=== PATIENT | male | born 1955 | race Two or more races ===

== ENCOUNTER 2020-04-19 15:39 | Inpatient (IN) | payer OTHER, MEDICAID ==
[~2020-04-19] VITALS: Ht 172.7 cm; Wt 90.5 kg
[2020-04-19] MEDS ORDERED: LORazepam Inj 2mg/ml 1ml IV ONE (15:45)
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
--- NOTE | 2020-04-19 16:02 | NUR ---
ED Nurse Note: x-ray at bedside.
--- NOTE | 2020-04-19 16:07 | NUR ---
ED Nurse Note: [employer] at bedside.
[2020-04-19 16:14] VITALS: BP 90/54
[2020-04-19 16:18] LABS: BASOPHILS % (AUTO) 0.8 % (0.0-2.0); EOSINOPHILS % (AUTO) 1.1 % (0.0-3.0); HEMATOCRIT 40.1 % (42.0-52.0); HEMOGLOBIN 13.7 G/DL (14.2-18.0); LYMPHOCYTES % (AUTO) 30.5 % (20.0-45.0); MEAN CORPUSCULAR VOLUME 97 FL (80-99); MONOCYTES % (AUTO) 15.6 % (1.0-10.0); NEUTROPHILS % (AUTO) 52.1 % (45.0-75.0); PLATELET COUNT 123 K/UL (150-450); RED BLOOD COUNT 4.15 M/UL (4.70-6.10); RED CELL DISTRIBUTION WIDTH 14.1 % (11.6-14.8); WHITE BLOOD COUNT 5.7 K/UL (4.8-10.8)
--- NOTE | 2020-04-19 16:23 | NUR ---
ED Nurse Note: Latest BP: 84/46, pt denies having any dizziness.
[2020-04-19 16:29] LABS: ALANINE AMINOTRANSFERASE 86 U/L (12-78); ALBUMIN 3.2 G/DL (3.4-5.0); ALBUMIN/GLOBULIN RATIO 0.8 (1.0-2.7); ALKALINE PHOSPHATASE 88 U/L (46-116); ANION GAP 12 mmol/L (5-15); ASPARTATE AMINO TRANSFERASE 64 U/L (15-37); BILIRUBIN,TOTAL 0.8 MG/DL (0.2-1.0); BLOOD UREA NITROGEN 21 mg/dL (7-18); CALCIUM 8.8 MG/DL (8.5-10.1); CARBON DIOXIDE 26 MMOL/L (21-32); CHLORIDE 96 MMOL/L (98-107); CREATININE 1.1 MG/DL (0.55-1.30); SODIUM 134 MMOL/L (136-145)
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
[2020-04-19 16:44] LABS: POTASSIUM 2.6 MMOL/L (3.5-5.1)
[2020-04-19 17:09] LABS: APPEARANCE,URINE CLEAR; BILIRUBIN, URINE NEGATIVE (NEGATIVE); GLUCOSE, URINE (UA) NEGATIVE (NEGATIVE); KETONES,URINE NEGATIVE (NEGATIVE); LEUKOCYTE ESTERASE ,URINE NEGATIVE (NEGATIVE); NITRITE,URINE NEGATIVE (NEGATIVE); PH,URINE 7 (4.5-8.0); PROTEIN,URINE NEGATIVE (NEGATIVE); UROBILINOGEN,URINE 1 MG/DL (0.0-1.0)
[2020-04-19 17:15] LABS: COLOR,URINE YELLOW
--- NOTE | 2020-04-19 17:29 | Diagnostic Imaging Report ---
Indication: Shortness of breath Technique: One view of the chest Comparison: none Findings: Lungs and pleural spaces are clear. Heart size is normal. Impression: No acute process
--- NOTE | 2020-04-19 17:30 | Diagnostic Imaging Report ---
Indication: Low back pain Technique: 3 views of the lumbar spine Comparison: None Findings: There is very slight anterior offset of L5 on S1. No definite pars defect is demonstrated. There is degenerative disc narrowing at L5-S1. The remaining disc spaces are preserved. Vertebral body heights are preserved. Pedicles are intact. Sacral arches are preserved. Sacral iliac joint spaces are preserved Impression: Degenerative changes. No acute process
[2020-04-19 17:35] VITALS: BP 110/71
[2020-04-19] MEDS ORDERED: LISINOPRIL5 MG ORAL (18:25)
[2020-04-19] MEDS ORDERED: ATORVASTATIN CA10 MG ORAL (18:25)
--- NOTE | 2020-04-19 18:25 | NUR ---
ED Nurse pt was transferred to telemetry unit under the care of dr zapata. report was given to rohini guillermo in tele unit. pt was transferred on stable condition; all belongings were sent with pt
--- NOTE | 2020-04-19 18:47 | NUR ---
NURSE NOTES: PATIENT WAS PRE-ADMITTED FROM ER TO TELE AT 18:33. PATIENT IS AAO X4, DENIES ANY PAIN AT THIS TIME. 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 V/S TAKEN, BP 129/83, T 97.7, R 20, HR 61, O2 SAT 96% ON RA. PATIENT IS IN STABLE CONDITION ALL BELONGINGS ACCOUNTED FOR AND SIGNED. WILL ENDORSE ADMISSION TO ARCHITECTURAL REPRESENTATIVE. WILL CONTINUE TO MONITOR PATIENT..
--- NOTE | 2020-04-19 19:30 | NUR ---
NURSE NOTES: Received pt and report from DILMA Granger. Observed pt resting in bed with both eyes open and on his cell phone. outside industrial sales representative is in placed; pt is NSR. IV site intact, intact, asymptomatic, and patent. Bed is in the lowest position and locked. Call light and bedside table is within reach. No signs/symptoms of acute distress noted. Will continue plan of care.
--- NOTE | 2020-04-19 19:37 | NUR ---
NURSE HAND-OFF REPORT: Important Events on Shift:NEW ADMISSION Patient Status: Diet: Pending Orders: Pending Results/Labs: Pending MD notification: Latest Vital Signs: Temperature 96.3 , Pulse 70 , B/P 110 /71 , Respiratory Rate 14 , O2 SAT 98 , Room Air, O2 Flow Rate . Vital Sign Comment: STABLE EKG Rhythm: Rhythm change?: MD Notified?: - MD Response: Latest Najera Fall Score: Fall Risk: Safety Measures: Call light , Bed Alarm , Side Rails , Bed position . Fall Precautions: Report given to .
[2020-04-19 20:00] VITALS: BP 131/76
--- NOTE | 2020-04-19 20:20 | NUR ---
NURSE NOTES: Per Dr. Rodriguez, continue KCL 10mEq IVPB x3 that was ordered in ER and put pt down as FULL CODE. Will note and carry out.
--- NOTE | 2020-04-19 20:40 | NUR ---
NURSE NOTES: Per pharmacist, ER orders have already . Will have to reorder KCL 10mEq IVPB x3. Will note and carry out.
[2020-04-19] MEDS: NS w/KCl 20mEq 1000ml 1,000 ML IV SCH (20:45)
[2020-04-19 21:33] LABS: ANION GAP 8 mmol/L (5-15); BLOOD UREA NITROGEN 17 mg/dL (7-18); CARBON DIOXIDE 28 MMOL/L (21-32); CHLORIDE 96 MMOL/L (98-107); CREATININE 1.1 MG/DL (0.55-1.30); POTASSIUM 3.1 MMOL/L (3.5-5.1); SODIUM 132 MMOL/L (136-145)
[2020-04-20] VITALS: BP 121/84
--- NOTE | 2020-04-20 01:54 | NUR ---
NURSE NOTES: Observed pt awake in bed and on his cell phone. No signs/symptoms of acute distress noted. Will continue plan of care.
--- NOTE | 2020-04-20 02:00 | History and Physical Report ---
DATE OF ADMISSION: 04/19/2020 REASON FOR ADMISSION: Hypokalemia. HISTORY OF PRESENT ILLNESS: This is a 65-year-old male. He has a history of hypertension and hyperlipidemia. He was brought into the emergency room after complaining of shortness of breath, lightheadedness, and palpitations as well as feeling increasingly anxious. 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 While he does have a history of anxiety, he has not been on medications for several years. He takes his blood pressure and cholesterol medication regularly. The patient does state that he has had diarrhea for the past day or two 3 to 4 times a day, not too voluminous and not associated with any bleeding, fevers, or chills. He states that it may have started after taking therapy for constipation a few days back. ALLERGIES: None. FAMILY HISTORY: Noncontributory. SOCIAL HISTORY: Nonsmoker. No alcohol or substance abuse. MEDICATIONS: Include benazepril and amlodipine. REVIEW OF SYSTEMS: Otherwise unremarkable. PHYSICAL EXAMINATION: VITAL SIGNS: Blood pressure 90/54, heart rate 110, respirations 18, afebrile. HEENT: Conjunctivae pink. Oropharynx clear. NECK: Supple. LUNGS: Clear. CARDIAC: Regular. Normal S1, S2. ABDOMEN: Soft. EXTREMITIES: No edema. NEUROLOGIC: Nonfocal. Slight resting tremor. LABORATORY DATA: White count 5.7, hemoglobin 13.7. Sodium 134, potassium 2.6, bicarb 26, BUN 21, creatinine 1.1. Magnesium 1.8, repeated 1.6. Urinalysis with no active sediment. IMPRESSION: 1. Hypokalemia. 2. Hypomagnesemia. 3. Diarrhea. 4. History of hypertension, now with low range blood pressure, likely associated with hypovolemia. 5. History of hyperlipidemia. PLAN: 1. Saline hydration. 2. Potassium replacement. 3. Magnesium replacement intravenously. 4. Antidiarrheals as needed. 5. Stool studies. 6. Hold antihypertensives. 7. Hold statin drugs. Rick Rodriguez M.D. : MARISSA JOB#: [id number] CC:
[2020-04-20 04:00] VITALS: BP 112/79
--- NOTE | 2020-04-20 05:20 | NUR ---
NURSE NOTES: Notified Dr. Rodriguez that pt's HR decreases as low as 48 bpm while asleep. Pt is asymptomatic.
[2020-04-20] MEDS: NS w/KCl 20mEq 1000ml 1,000 ML IV SCH ×2 (05:51→16:04)
[2020-04-20 07:23] LABS: ANION GAP 8 mmol/L (5-15); BLOOD UREA NITROGEN 11 mg/dL (7-18); CALCIUM 7.9 MG/DL (8.5-10.1); CARBON DIOXIDE 24 MMOL/L (21-32); CHLORIDE 104 MMOL/L (98-107); CREATININE 0.9 MG/DL (0.55-1.30); POTASSIUM 3.5 MMOL/L (3.5-5.1); SODIUM 136 MMOL/L (136-145)
--- NOTE | 2020-04-20 07:23 | NUR ---
NURSE HAND-OFF REPORT: Important Events on Shift: Notified Dr. Rodriguez that pt's HR decreased as low as 48 bpm when asleep. Pt was asymptomatic. Replaced Potassium and Magnesium as ordered. Patient Status: Stable Diet: Regular Pending Orders: N Pending Results/Labs: AM Labs Pending MD notification: N Latest Vital Signs: Temperature 97.5 , Pulse 65 , B/P 112 /79 , Respiratory Rate 17 , O2 SAT 97 , Room Air, O2 Flow Rate . EKG Rhythm: Sinus Bradycardia Rhythm change?: Y Notified?: Y -Dr. Jennifer MONTEJO Response: Message left await call Latest Najera Fall Score: 35 Fall Risk: Medium Risk Safety Measures: Call light Within Reach, Bed Alarm , Side Rails Side Rails x2, Bed position Low and Locked. Fall Precautions: Patient Fall Education Report given to DILMA Parker.
--- NOTE | 2020-04-20 07:30 | NUR ---
NURSE NOTES: Received report from Abbey/RN. Observed patient awake, eating breakfast in bed. On room air, no acute distress/SOB noted, breathing evenly and unlabored. AAO x4, able to make needs known, denies pain at this time. IV site patent and intact, NS W/20 KCL running at 100cc/hr. Call light within reach, Encouraged to use call light when needed. Will continue plan of care.
[2020-04-20 08:00] VITALS: BP 115/80
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
[2020-04-20 11:54] VITALS: BP 111/79
--- NOTE | 2020-04-20 13:20 | NUR ---
INSURANCE CLINICALS/REVIW FAXED TO [facility] [phone]
[2020-04-20 16:00] VITALS: BP 116/80
[2020-04-20] MEDS ORDERED: ZESTRIL10 M1 ORAL (18:11)
--- NOTE | 2020-04-20 19:25 | NUR ---
NURSE NOTES: Pt. received from DILMA Parker. Pt. AAOx4 on room air, breathing even and unlabored on room air, no indications of respiratory distress, no active complaints of pain at this time. IV access right FA 20g saline locked and left FA 20g saline locked. Bed low and locked, side rails x2 up, and call light in reach. Pt. with active discharge, paperwork signed by day shift RN; awaiting family member to pick pt. up.
--- NOTE | 2020-04-20 19:26 | NUR ---
NURSE HAND-OFF REPORT: Important Events on Shift:Patient discharged home Patient Status: Stable Diet: Regular Pending Orders: NA Pending Results/Labs:NA Pending notification:NA Latest Vital Signs: Temperature 97.7 , Pulse 61 , B/P 116 /80 , Respiratory Rate 20 , O2 SAT 98 , Room Air, O2 Flow Rate . Vital Sign Comment: stable EKG Rhythm: Sinus Rhythm Rhythm change?: N MD Notified?: Dharmesh Rodriguez MD Response: Message left await call Latest Najera Fall Score: 35 Fall Risk: Medium Risk Safety Measures: Call light Within Reach, Bed Alarm Zone 1, Side Rails Side Rails x2, Bed position Low and Locked. Fall Precautions: Door Sign Patient Fall Education Report given to Dionicio/DILMA.
[2020-04-20 20:00] VITALS: BP 114/79
--- NOTE | 2020-04-20 20:15 | NUR ---
NURSE NOTES: Pt. discharged safely with family member to home. Discharge completed by day shift RN. ID band removed, monitor removed, and IV access discontinued. Pt. AAOx4, VS stable, no indications of acute distress. Belongings sent with pt.
[2020-04-21] MEDS ORDERED: Lisinopril 10mg tab ORAL SCH (09:00)
--- NOTE | 2020-04-22 10:46 | Discharge Summary ---
Discharge Summary Discharge Summary _ DATE OF ADMISSION: 04/19/2020 DATE OF DISCHARGE: 04/20/2020 DISCHARGED BY: REASON FOR ADMISSION: 65 years old male with past medical history of hypertension , hyperlipidemia, anxiety, was brought to emergency department complaining of anxiety, associated with shortness of breath along with lightheadedness and palpitations. Patient was feeling increasingly anxious. Patient apparently lost his job about 2 weeks ago and was depressed as a result. Patient was previously prescribed medications for anxiety, which he was not taking for a long time . Patient also reported diarrhea 3-4 times a day for the past 2 days , not associated with bleeding , fevers or chills. It might have started after he was taking medication for constipation. Upon evaluation patient was slightly tachycardic with heart rate 110 , blood pressure was 90/54 ,no fevers. Laboratory work-up revealed no leukocytosis ,stable hemoglobin ,hematocrit and platelet count. Potassium 2.6. BUN 21, creatinine 1.1. Troponin 0.004 . EKG revealed sinus rhythm, no acute ischemic changes Urine toxicology screen was positive for benzodiazepine. Chest x-ray revealed no acute cardiopulmonary pathology. Patient reported having recently two COVID-19 testing, which were negative. HOSPITAL COURSE: Patient admitted to telemetry floor . Patient was hydrated with saline solution. Potassium and magnesium were replaced. All antihypertensives were hold . Blood pressure was closely monitored; improved with IV hydration . Prior to discharge BP 114/79. Potassium up to 3.5 prior to discharge. TSH within normal limits. Diarrhea resolved. Pulse oximetry remains stable on room air. Telemetry continue to demonstrate sinus rhythm,. Patient clinically stabilized and was ready for discharge home. Due to rapid and unexpected improvement in patient condition , patient was discharged in 1 day. FINAL DIAGNOSES: Diarrhea-resolved Hypokalemia Hypomagnesemia History of hypertension , now with hypotension likely associated with hypovolemia Dehydration History of hyperlipidemia DISCHARGE MEDICATIONS: See Medication Reconciliation list. DISCHARGE INSTRUCTIONS: Patient was discharged home. Follow-up with a primary care provider in 1 week. I have been assigned to dictate discharge summary for this account. I was not involved in the patient's management. Pauline Mcfarland NP Apr 22, 2020 10:46
--- NOTE | 2020-04-22 17:02 | Cardiology Report ---
APPROVED REPORT EKG Measurement Heart [id number] [place] [id number] <Conclusion> Normal sinus rhythm Normal ECG
== END 2020-04-20 20:15 | disposition home or self-care (01) | DRG 641 ==
LOC: EDBD 15:39 → EMR 15:56 → 2E 17:00 → EDBEDREQ 17:25
DX: E87.6 Hypokalemia (principal); E83.42 Hypomagnesemia; I10 Essential (primary) hypertension; F41.9 Anxiety disorder, unspecified; R19.7 Diarrhea, unspecified; E78.5 Hyperlipidemia, unspecified
CPT/HCPCS: 36415; 71045; 72020; 80048; 80053; 80307; 81003; 83036; 83735; 84443; 84484; 85025; 85379; 93005; 96361; 96365; 96375; 99291; J7030; J8499